=== PATIENT | female | born 1980 ===

== ENCOUNTER 2025-02-25 05:35 | Day surgery (SDC) | payer OTHER ==
[2025-02-22 11:55] VITALS: BMI 28.0
[2025-02-25] MEDS ORDERED: PROPOFOL 20 ML ONE (12:22)
[2025-02-25] MEDS ORDERED: ONDANSETRON 4 MG/2 ML VIAL ONE (12:22)
[2025-02-25] MEDS ORDERED: DEXAMETHASONE SOD PHOSPHATE 4 MG/1 ML VIAL ONE (12:22)
[2025-02-25] MEDS ORDERED: LIDOCAINE HCL 2% 100 MG/5 ML DISP.SYRIN ONE (12:22)
[2025-02-25] MEDS ORDERED: MIDAZOLAM HCL 2 MG/2 ML SINGLE DOSE VIAL ONE (12:23)
[2025-02-25] MEDS: ceFAZolin SODIUM 1 GM VIAL IVPB ONE ×2 (12:48)
[2025-02-25] MEDS ORDERED: ONDANSETRON 4 MG/2 ML VIAL IVPUSH PRN (12:58)
[2025-02-25] MEDS ORDERED: ACETAMINOPHEN INJECTION 100 ML ONE (13:59)
[2025-02-25] MEDS: ACETAMINOPHEN 1000 MG/100 ML BAG IVPB ONE (14:02)
[2025-02-25] MEDS: LACTATED RINGERS SOLUTION 1,000 ML IV SCH (15:44)
[2025-02-25 16:37] VITALS: RESP 18
[2025-02-25 17:42] VITALS: BP 132/68; PULSE 79; TEMP 97.8
== END 2025-02-25 17:13 | disposition home or self-care (01) ==
LOC: JASU-SURG 05:35
PROVIDERS: ATTEND Obstetrics & Gynecology
PROC: 0UB98ZZ Excision of Uterus, Via Natural or Artificial Opening Endoscopic (ICD-10-PCS; principal; 2025-02-25 11:00)
DX: N84.0 Polyp of corpus uteri (principal)
CPT/HCPCS: 81025; 88305-TC; 94760